=== PATIENT | female | born 1980 | race Caucasian/White ===

== ENCOUNTER → 2020-04-04 09:59 | Outpatient (BNVA) | payer BC, SELFPAY | PROVIDERS: Family Provider Family Medicine; PCP Family Medicine; Referring Provider Family Medicine; Visit Provider Podiatrist Foot & Ankle Surgery | DX: M79.672 Pain in left foot (principal) | CPT/HCPCS: 73630 ==

== ENCOUNTER 2021-12-10 15:55 | Outpatient (CLI) | payer BC, SELFPAY | END 2021-12-10 15:56 | disposition home or self-care (01) | LOC: SPT 15:55 | PROVIDERS: Family Provider Family Medicine; PCP Family Medicine; Visit Provider Podiatrist Foot & Ankle Surgery | DX: Z46.89 Encounter for fitting and adjustment of other specified devices (principal); G57.62 Lesion of plantar nerve, left lower limb | CPT/HCPCS: 97760; L3030 ==

== ENCOUNTER → 2022-09-22 08:05 | Outpatient (BNVA) | payer OTHER, SELFPAY | PROVIDERS: Family Provider Family Medicine; PCP Family Medicine; Visit Provider Podiatrist Foot & Ankle Surgery | DX: G57.62 Lesion of plantar nerve, left lower limb (principal) | CPT/HCPCS: 73630 ==

== ENCOUNTER 2022-12-05 05:48 | Day surgery (SDC) | payer OTHER, SELFPAY ==
[2022-12-04 09:44] VITALS: BMI 28.3
[2022-12-05 06:21] VITALS: BP 138/104; PULSE 71; RESP 16; TEMP 36.6; O2SAT 96
[2022-12-05 06:22] LABS: OR HCG Qualitative Urine Negative (Negative)
--- NOTE | 2022-12-05 06:40 | P.ANESASSM_ITS ---
Pre-Anesthetic Assessment Height/Weight: Height 1.7 m Weight 82.1 kg Temp Pulse Resp BP Pulse Ox O2 Del Method 97.8 F 71 16 138/104 96 Room Air 12/05/22 06:21 12/05/22 06:21 12/05/22 06:21 12/05/22 06:21 12/05/22 06:21 12/05/22 06:21 Preop Diagnosis: Left Kaplan's neuroma Operation Date: 12/05/22 07:00 Proposed Procedures p Excision Kaplan's Neuroma(Left) - Brian Morales DPM s Excision of Kaplan's neuroma versus decompression of second intermetatarsal space 50195 versus 52728, G57.62(Left) - Brian Morales DPM Familial anesthetic complications: None Was Beta Abbey taken within 24 hours: N/A Was Clonidine taken within 24 hours: N/A Last intake: Intake Last Liquid Date 12/04/22 Last Liquid Time 20:00 Last Solid Date 12/04/22 Last Solid Time 20:00 Social No alcohol and No tobacco Exam alert, oriented x 3, clear to auscultation bilaterally and regular rate & rhythm Airway Mallampati: Class IV Dentition: full and other (implants) CV/HEM Hypertension Anesthetic Plan ASA status: 2 Anesthesia: MAC Risk of > 500 ml blood loss (7ml/kg in children): No Medications/Allergies Home Medications Medication Instructions Recorded Confirmed Last Taken Type lisinopril 10 mg tablet 10 mg PO DAILY 04/04/20 12/05/22 12/04/22 History sole supports #1 ea 09/10/21 11/12/22 Unknown Rx hydrocodone 10 mg-acetaminophen 1 tab PO Q6H PRN pain 7 days #20 12/05/22 Unknown Rx 325 mg tablet tabs Allergies Allergy/AdvReac Type Severity Reaction Status Date / Time No Known Allergies Allergy Verified 12/05/22 06:20 [facility] Anesthesia Medical History delivery delivered Hypertension Family History Denies family history of Cancer Social History Smoking and tobacco status: never smoked Household members: spouse and children Marital status: Current occupational status: unemployed Current occupation: stay at home mom Data Anesthesia Cardiac Studies: No Data to Display
--- NOTE | 2022-12-05 06:41 | W.PM.OPSUD ---
Surgery/Procedure H&P Update DATE OF PROCEDURE: December 05, 2022 DATE H&P PERFORMED: 11/12/22 CHANGES TO PREVIOUS DOCUMENTATION: none PREOP DIAGNOSIS: Left Kaplan's neuroma PLANNED PROCEDURE: Operation Date: 12/05/22 07:00 Proposed Procedures p Excision Kaplan's Neuroma(Left) - Brian Morales DPM s Excision of Kaplan's neuroma versus decompression of second intermetatarsal space 27039 versus 53365, G57.62(Left) - Brian Morales DPM
[2022-12-05] MEDS: sodium chloride 0.9% 1,000 ML 30 ML IV (06:45)
[2022-12-05] MEDS: ceFAZolin 2,000 MG in sodium chloride 0.9% (plus) 50 ML 100 MG IV (06:55)
[2022-12-05 07:01] LABS: Anion Gap 14.4 (5-19); Blood Urea Nitrogen 12 mg/dL (6-20); Carbon Dioxide 26 mmol/L (22-29); Chloride 102 mmol/L (98-107); Glomerular Filtration Rate 134.7 mL/min (90-130); Glucose 95 mg/dL (65-115); Potassium 3.4 mmol/L (3.5-5.1); Sodium 139 mmol/L (136-145)
[2022-12-05 07:02] LABS: Calcium 9.3 mg/dL (8.5-10.5); Osmolality Calculated 288 mOsm/kg (285-295)
[2022-12-05] MEDS: dexamethasone 4 mg/mL INJ INJECTION (07:28)
[2022-12-05 07:40] VITALS: BP 112/64; PULSE 90; RESP 13; TEMP 36.5; O2SAT 95
[2022-12-05 07:45] VITALS: BP 121/59; PULSE 83; RESP 17; O2SAT 95
--- NOTE | 2022-12-05 07:49 | PM.OP ---
Operative Report Date of procedure: December 05, 2022 Pre-op diagnosis: Left second intermetatarsal Kaplan's neuroma Post-op diagnosis: Same Procedure done: External neurolysis and decompression of second intermetatarsal space. CPT code 84704 Implants: 4-0 Vicryl, 4-0 nylon Surgeon: Brian Morales D.P.M. Child Care Associate Teacher: Monica Estimated blood loss: Less than 5 27 IV fluids: None Urine output: None Complications: None Brief History: Pleasant 41-year-old female presents with recalcitrant left second intermetatarsal Kaplan's neuroma confirmed with MRI.? See MRI report scanned in the chart.? She has failed conservative treatment consisting of shoe gear modification, wide toebox, orthopedic sandals, and stretching, metatarsal pad, orthotics, cortisone traction.? She has had to reduce her exercise regimen and made modifications to her fitness routine due to the pain that she has experience with her left foot more than normal.? She like discuss surgical options.? I reviewed surgical approach, risks, benefits and expected recovery times with decompression of left second intercostal space versus incision emergency room.? She will consider both options.? She is leaning towards decompression. I reviewed at length with the patient, the risks, potential complications, benefits, alternatives, expectations, and typical outcomes associated with the surgery. The risks and potential complications were explained in detail, including but not limited to infection, wound dehiscence or soft tissue complications, bleeding and hematoma, chronic edema, neuritis or nerve damage producing numbness or chronic pain, CRPS, failure to relieve pain or worsening pain, thick / painful / unsightly scar, limited motion / stiffness, malposition, delayed union, malunion, or nonunion, fracture, reaction to implants, anesthetic complications, venous thromboembolism, and deformity recurrence.? I discussed the notion of no regrets with the patient as it pertains to complications and outcomes. The patient seemed to understand the nature of the proposed care and required convalescence. They asked appropriate questions, answered to their satisfaction. They are aware no guarantees can be made as to a satisfactory outcome and they understand there may be other possible unforeseen complications or outcomes not listed here that will be treated accordingly if they arise. There were no written or implied guarantees given to the patient. They gave informed consent to proceed. Procedure: Under mild sedation the patient was brought to the operating room and remained on the gurney in supine position. A timeout was performed. Anesthesia was then administered by the anesthesia service. Local anesthesia injected by myself consisting of 20 cc of Marcaine and 10 cc of Exparel in a left second ray block fashion. Well-padded pneumatic tourniquet applied to the left ankle. The left lower extremity was scrubbed, prepped and draped utilizing normal aseptic technique. Left foot was exanguinated with an Esmarch bandage and the tourniquet inflated to 250 mmHg. A longitudinal incision was made over the plantar aspect of the foot, between the second and third metatarsal heads, extending approximately 3 cm distally. The subcutaneous tissue and superficial fascia were dissected through using electrocautery, taking care to avoid injury to the digital nerves. Upon exposure of the second intermetatarsal space, the transverse metatarsal ligament was identified and incised to gain access to the underlying structures. Careful dissection was performed to identify the Kaplan neuroma, which appeared as a thickened, fibrotic nerve bundle between the third and fourth metatarsal heads. The neuroma was gently dissected free from the surrounding tissues, taking care to preserve the adjacent structures, including the digital nerves and arteries. Blunt dissection and meticulous hemostasis were utilized to ensure optimal visualization and minimize bleeding. Once the neuroma was completely freed, a decision was made to perform a decompression procedure to alleviate pressure on the nerve. The surrounding tissues, including the intermetatarsal ligament and deep transverse intermetatarsal ligament, were carefully released using blunt dissection and electrocautery. After ensuring satisfactory decompression, the wound was thoroughly irrigated with a sterile saline solution to remove any debris or blood. Hemostasis was confirmed, and the wound was closed in layers. The subcutaneous tissues were approximated using absorbable sutures, and the skin was closed with interrupted nylon sutures. Sterile dressings were applied over the incision site, and a sterile compression dressing was applied to the foot. The tourniquet was released, and the patient's foot was inspected for any signs of bleeding or hematoma formation. The foot was then dressed in a soft bulky bandage, and the patient was transferred to the recovery room in stable condition. There were no intraoperative complications, and the patient tolerated the procedure well. Postoperative instructions were provided to the patient, including elevation of the foot, application of ice packs, and limitation of weight-bearing activities for a specified period. The patient was scheduled for a follow-up appointment in the clinic in 1 week to assess the progress of the wound and evaluate for any signs of recurrent symptoms. Summary: The patient underwent a Kaplan neuroma decompression procedure, during which the neuroma was identified, dissected free, and a decompression procedure was performed. The patient tolerated the procedure well, and postoperative instructions were provided. The excised specimen confirmed the diagnosis of Kaplan neuroma. The patient will be followed up in the clinic to assess the progress of the wound and evaluate for any signs of recurrence.
[2022-12-05 07:50] VITALS: BP 114/74; PULSE 84; RESP 16; TEMP 36.2; O2SAT 96
[2022-12-05 07:54] VITALS: BP 97/76; PULSE 78; RESP 18; TEMP 36.2; O2SAT 96
[2022-12-05] MEDS: HYDROcodone-acetaminophen 10-325 mg Tablet 1 TAB PO (08:14)
[2022-12-05 08:20] VITALS: BP 123/74; PULSE 72; RESP 18; O2SAT 96
--- NOTE | 2022-12-05 12:09 | ANE.PACU2 ---
Inpatient post-anesthesia follow up: Airway intact: Yes Vital signs: Temperature 97.2 F Pulse Rate 72 Respiratory Rate 18 Blood Pressure 123/74 Pulse Oximetry 96 Oxygen Delivery Me thod Room Air Oxygen Flow Rate Fraction of Inspir ed Oxygen Hydration adequate: Yes Nausea and vomiting: Yes Pain level: 1 Mental status: Baseline
== END 2022-12-05 08:42 | disposition home or self-care (01) ==
PROVIDERS: Anesthesiology; PCP Family Medicine; Visit Provider Podiatrist Foot & Ankle Surgery
PROC: (CPT 28080; principal; 2022-12-05 07:00)
DX: G57.62 Lesion of plantar nerve, left lower limb (principal); I10 Essential (primary) hypertension
CPT/HCPCS: 64726; 80048; 81025; 84703; C9290; J0690; J1100; J1885; J2250; J2704; J3010; J3490; J7030

== ENCOUNTER 2024-03-31 09:31 | Outpatient (RCR) | payer OTHER, SELFPAY | END 2024-04-04 23:59 | disposition home or self-care (01) | LOC: SPT 09:31 | PROVIDERS: PCP Family Medicine; Visit Provider Family Medicine | DX: M53.3 Sacrococcygeal disorders, not elsewhere classified (principal) | CPT/HCPCS: 97161 ==

== ENCOUNTER 2024-04-05 06:00 | Outpatient (RCR) | payer OTHER, SELFPAY | END 2024-05-05 23:59 | disposition home or self-care (01) | LOC: SPT 06:00 | PROVIDERS: PCP Family Medicine; Visit Provider Family Medicine | DX: M53.3 Sacrococcygeal disorders, not elsewhere classified (principal) | CPT/HCPCS: 20560; 97110; 97530 ==

== ENCOUNTER 2024-05-06 06:00 | Outpatient (RCR) | payer OTHER, SELFPAY | END 2024-06-04 23:59 | disposition home or self-care (01) | LOC: SPT 06:00 | PROVIDERS: PCP Family Medicine; Visit Provider Family Medicine | DX: M53.3 Sacrococcygeal disorders, not elsewhere classified (principal) | CPT/HCPCS: 20560; 97110 ==

== ENCOUNTER 2024-05-19 16:22 | Outpatient (CLI) | payer OTHER, SELFPAY ==
--- NOTE | 2024-05-19 16:30 | MR_ITS ---
WS: [id number] MRI LUMBAR SPINE NONCONTRAST TECHNIQUE: Sagittal T1, T2 and STIR imaging. Axial T1 and T2 imaging. CLINICAL INFORMATION: LUMBAGO WITH SCIATICA COMPARISON: None. FINDINGS: Mild lumbar curve. No acute compression. Large RIGHT paracentral disc extrusion L5-S1 impinges the tr aversing RIGHT S1 and S2 nerve roots in the subarticular recess. Disc material measures approximately 9.3 x 14.9 mm AP by transverse. Cranial migration of disc material in the subarticular recess. L1-L2: Normal. L2-L3: Mild annular bulging. Mild facet arthropathy. Spinal canal and foramen are patent. L3-L4: Mild annular bulging. Mild facet arthropathy. Small LEFT foraminal protrusion with mild LEFT f oraminal narrowing. Slight impingement exiting L3 nerve root. RIGHT foramen is patent. Mild facet art hropathy. L4-L5: Mild annular bulging. Small LEFT foraminal protrusion with mild LEFT foraminal narrowing. Mode rate facet arthropathy. L5-S1: RIGHT subarticular disc extrusion described above with mild to moderate central canal stenosis . Foramina are patent. Mild to moderate facet arthropathy. Visualized pelvic bony structures: Normal. Paravertebral soft tissues: Normal. Tiny RIGHT renal cyst. Central disc protrusions in the cervical spine regulatory attorney imaging at C5-C6 and C6-C7 with mild central can al stenosis. Prominent central protrusion at C6-7. Recommend further evaluation with cervical spine M RI. Partially visualized LEFT ovarian or adnexal cyst measuring 3.2 x 3.1 cm with internal debris lik elizabeth hemorrhagic. This could further evaluated with ultrasound. MR/MR lumbar spine wo con* [id number] IMPRESSION: 1. Large RIGHT L5-S1 subarticular disc extrusion described above. Impingement on the traversing RIGHT S1 and S2 nerve roots with mild to moderate narrowing o f the thecal sac. Recommend spine surgery consultation. 2. Prominent disc protrusions in the cervical spine on the regulatory attorney imaging recom mend further evaluation with cervical spine MRI. 3. Partially visualized suspected hemorrhagic LEFT ovarian cyst measuring 3.1 x 3.2 cm. Recommend further evaluation with ultrasound.
== END 2024-05-19 16:23 | disposition home or self-care (01) ==
LOC: RAD 16:23
PROVIDERS: PCP Family Medicine; Visit Provider Family Medicine
DX: M54.16 Radiculopathy, lumbar region (principal); M51.26 Other intervertebral disc displacement, lumbar region; M47.896 Other spondylosis, lumbar region; M50.20 Other cervical disc displacement, unspecified cervical region; N83.202 Unspecified ovarian cyst, left side
CPT/HCPCS: 72148

== ENCOUNTER 2024-06-05 06:00 | Outpatient (RCR) | payer OTHER, SELFPAY | END 2024-07-05 23:59 | disposition home or self-care (01) | LOC: SPT 06:00 | PROVIDERS: PCP Family Medicine; Visit Provider Family Medicine | DX: M53.3 Sacrococcygeal disorders, not elsewhere classified (principal) | CPT/HCPCS: 97110 ==

== ENCOUNTER 2024-08-09 10:58 | Outpatient (RCR) | payer OTHER, SELFPAY | END 2024-09-02 23:59 | disposition home or self-care (01) | LOC: SPT 10:58 | PROVIDERS: Visit Provider Orthopaedic Surgery | DX: M48.061 Spinal stenosis, lumbar region without neurogenic claudication (principal); M54.16 Radiculopathy, lumbar region | CPT/HCPCS: 97110; 97161 ==

== ENCOUNTER 2024-09-03 06:30 | Outpatient (RCR) | payer OTHER, SELFPAY | END 2024-09-22 10:20 | disposition home or self-care (01) | LOC: SPT 06:30 | PROVIDERS: Visit Provider Orthopaedic Surgery | DX: M48.061 Spinal stenosis, lumbar region without neurogenic claudication (principal); M54.16 Radiculopathy, lumbar region | CPT/HCPCS: 97110 ==